=== PATIENT | female | born 1970 | race Caucasian/White ===

== ENCOUNTER → 2024-03-07 10:37 | Outpatient (BNVA) | payer MEDICARE, SELFPAY | PROVIDERS: Family Provider Family Medicine; PCP Nurse Practitioner Family; Visit Provider Podiatrist Foot & Ankle Surgery | DX: M25.571 Pain in right ankle and joints of right foot (principal); M79.671 Pain in right foot; L60.0 Ingrowing nail; M76.71 Peroneal tendinitis, right leg | CPT/HCPCS: 11730; 73610; 73620; 99203 ==

== ENCOUNTER 2024-03-07 14:20 | Outpatient (CLI) | payer MEDICARE, SELFPAY | END 2024-03-07 14:21 | disposition home or self-care (01) | LOC: SPT 14:22 | PROVIDERS: Family Provider Family Medicine; PCP Nurse Practitioner Family; Visit Provider Podiatrist Foot & Ankle Surgery | DX: Z46.89 Encounter for fitting and adjustment of other specified devices (principal); M79.671 Pain in right foot; M25.571 Pain in right ankle and joints of right foot | CPT/HCPCS: L1902 ==